=== PATIENT | male | born 1995 | race African-American/Black ===

== ENCOUNTER 2017-02-26 15:15 | Emergency (ER) | payer SELFPAY ==
[2017-02-26 15:31] VITALS: BMI 21.4
--- NOTE | 2017-02-26 15:40 | DR.PSYCH ---
HPI - Time Seen Time seen: 15:35 - PCP Primary Care Physician: MARIA FERNANDA - HPI Comment HPI Comment: PATIENT IS PARIOD. HE DENIES FEVER, DYSURIA OR SOB. - Complaint Chief Complaint Doctors Comments: AUDITORY HALLUCINATIONS AND SOME VISUAL HALLUCINATIONS. CHRONIC BUT MORE FREQUENT NOW. VOICE TRYING TO HURT HIM. HE ALSO WANT TO HURT HIMSELF AND OTHERS. NO PLAIN REVEAL. HE IS A SCHIZOPHENIC PATIENT WITH BIPOLAR DISORDER WHO IS NOT TAKING MEDICATION FOR PAST 6 WEEKS. PATIENT IS ALSO HIV POSITIVE AND HAVE CHRONIC LIVER DISEASE DUE TO HEP C. Chief Complaint:: PT C/O HEARING VOICES "SOMEONE WAS TRYING TO KILL HIM". PT STATES HE HAS HAD THOUGHTS OF WANTING TO KILL HIMSELF AND HURT SOMEONE ELSE. PT STATES DID NOT HAVE A EXACT PLAN, BUT ONLY TO WHAT WAS GOING TO WORK THE [employer]. PT HAS BEEN OFF OF HIS MEDS FOR 1 1/2 MONTHS. PT STATES HE HEARS VOICES ALL THE TIME, BUT THEY ARE GETTING WORSE - Reviewed Nurses Notes Review: Yes - Source History Provided: Patient - Mode of Arrival Mode of Arrival: Ambulatory - Timing Onset of Chief Complaint: 02/22/17 Came on: Gradually - Duration Duration: Constant Duration: Weeks - Context Ideation: Suicidal, Homicidal Plan: None Stressors: Relationships History of: Bipolar, Schizophrenia, Suicidal Attempt (CUT HIS WRIST.) Medication Compliance: No - Quality Quality: None Hallucinations: Visual, Auditory - Severity Severity: Able to care for self - Associated signs and symptoms Intoxification: None <CHARLES HA - Last Filed: 02/26/17 19:49> PMH - PMH Past Medical History: Yes Past Medical History: Anxiety, Depression, Schizophrenia Past Medical History Comment: HIV, BIPOLAR TYPE 2, DELUSIONAL Past Surgical History: No - Family History History of Family Medical Conditions: No - Social History Does patient currently use any type of tobacco product: Yes Have you used tobacco products in the last 12 months: Yes Type of Tobacco Use: Cigarettes Does any household member use tobacco: Yes Alcohol Use: Occasionally Do you use any recreational Drugs:: Yes (COCAINE X2 WEEKS AGO) Lives Where: Homeless - infectious screening In the last 2 months have you had wt loss of >10#?: NO Have you had fever, night sweats or hemotysis?: No Have you traveled outside the country in the last 6 months?: No Isolation: Standard <CHARLES HA - Last Filed: 02/26/17 19:49> ROS - Review of Systems Constitutional: No Symptoms Reported Eyes: No Symptoms Reported ENTM: No Symptoms Reported Respiratoy: No Symptoms Reported Cardiovascular: No Symptoms Reported Gastrointestinal/Abdominal: No Symptoms Reported Genitourinary: No Symptoms Reported Neurological: No Symptoms Reported Musculoskeletal: No Symptoms Reported Integumentary: No Symptoms Reported Hematologic/Lymphatic: Other (HIV POSITIVE. HEP C POSITIVE.) Endocrine: No Symptoms Reported Psychiatric: Hallucinations, Suicidal (THOUGHTS), Other (HOMICIDAL THOUGHTS) All Other Systems: Reviewed and Negative <CHARLES HA Last Filed: 02/26/17 19:49> PE - General Limitations: No Limitations General Appearance: Alert - Head Head Exam: Normal Inspection - Eyes Eye exam: Normal Appearance Pupils: Regular, Round: Bilateral, Reactive: Bilateral Sclera/Conjunctival: Normal Inspection: Bilateral - ENT ENT Exam: Normal Oropharynx, Normal External Ear Exam, Mucous Membranes Moist, TM's Normal Bilaterally - Neck Neck Exam: Normal Inspection, Trachea Midline. negative: Tenderness, Meningismus, Lymphadenopathy - Chest Chest Inspection: Symmetric Chest Wall Rise - Respiratory Respiratory Exam: Normal Lung Sounds Bilat Respiratory Exam: Bilateral Clear to Auscultation - Cardiovascular Cardiovascular Exam: Regular Rate, Normal Rhythm, Normal Heart Sounds - Abdominal Exam Abdominal Exam: Normal Bowel Sounds, Soft. negative: Tenderness - Extremities Extremities Exam: Normal Inspection - Back Back Exam: Normal Inspection - Neurologic Neurological Exam: Alert, Oriented X3 Speech: Fluid Speech Cranial Nerve Exam: EOM Function (II, III, IV, ): Normal, Facial Sensation (V) : Normal, Facial Palsy (VII): Normal, Gag reflex (XI): Normal, Spinal Accessory Function (XI): Normal, Tongue Deviation: Normal Motor Strength - LUE: 5/5 Motor Strength - RUE: 5/5 Motor Strength - LLE: 5/5 Motor Strength - RLE: 5/5 Upper Motor Neuron Exam: Babinski Sign: Normal DTR: achilles tendon (L): 4+, achilles tendon (R): 4+, brachioradialis (L): 4+, brachioradialis (R): 4+, Patellar (L): 4+, patellar (R): 4+ - Psychiatric Psychiatric Exam: Anxious - Skin Skin Exam: Normal Color <CHARLES HA - Last Filed: 02/26/17 19:49> - Vitals Vitals: Temperature 97.8 F Pulse Rate [Left Brachial] 89 Pulse Rate 117 Respiratory Rate 20 Blood Pressure [Left Arm] 112/57 Blood Pressure 116/85 O2 Sat by Pulse Oximetry 100 MDD - Differential Diagnosis Differential diagnosis: Bipolar disorder, Homicidal, Schizophrenia, Substance abuse, Suicidal <CHARLES HA - Last Filed: 02/26/17 19:49> Course - Treatment Treatment: SEE ORDERS. - Consultation Consultation Comments: PATIENT IS MEDICALLY CLEAR. MENTAL HEALTH CONSULT. - Education/Counseling Education/Counseling: Patient, Education Educated On: Treatment, Diagnosis, Needs for Follow Up <CYNTHIA HAAllieYesenia - Last Filed: 02/26/17 19:49> ROR - Labs Reviewed Laboratory Results Reviewed?: Yes Result Diagrams: 02/26/17 15:30 02/26/17 15:30 - EKG Rhythm: NSR (EKG NOTED.) <ISAEL HAIGGYYesenia - Last Filed: 02/26/17 19:49> - Labs Reviewed Result Diagrams: 02/26/17 15:30 02/26/17 15:30 <MOE OLIVO - Last Filed: 02/27/17 01:54> - Labs Reviewed Laboratory: WBC 4.3 X10^3/uL (3.6-10.0) 02/26/17 15:30 RBC 5.36 X10^6/uL (4.7-6.0) 02/26/17 15:30 Hgb 15.9 g/dL (13.5-18.0) 02/26/17 15:30 Hct 45.3 % (42.0-54.0) 02/26/17 15:30 MCV 84.6 fL (80.0-100.0) 02/26/17 15:30 MCH 29.7 pg (27.0-34.0) 02/26/17 15:30 MCHC 35.1 g/dL (33.0-35.0) H 02/26/17 15:30 RDW 13.4 % (11.6-16.5) 02/26/17 15:30 Plt Count 217 X10^3/uL (150.0-450.0) 02/26/17 15:30 MPV 8.7 fL (7.4-11.0) 02/26/17 15:30 Neut % 34.5 % (42.0-75.0) L 02/26/17 15:30 Lymph % 54.0 % (21.0-51.0) H 02/26/17 15:30 Oliver % 8.6 % (0.0-13.0) 02/26/17 15:30 Eos % 1.7 % (0.9-2.9) 02/26/17 15:30 Baso % 1.2 % (0.2-1.0) H 02/26/17 15:30 Neut # 1.5 x10^3/uL (2.2-4.8) L 02/26/17 15:30 Lymph # 2.3 X10^3/uL (1.3-2.9) 02/26/17 15:30 Oliver # 0.4 x10^3/uL (0.3-0.8) 02/26/17 15:30 Eos # 0.1 x10^3/uL (0.0-0.2) 02/26/17 15:30 Baso # 0.0 X10^3/uL (0.0-0.1) 02/26/17 15:30 Absolute Nucleated RBC 0.2 /100WBC 02/26/17 15:30 Sodium 140 mmol/L (136-145) 02/26/17 15:30 Corrected Sodium TNP 02/26/17 15:30 Potassium 4.1 mmol/L (3.5-5.1) 02/26/17 15:30 Chloride 104 mmol/L (98-107) 02/26/17 15:30 Carbon Dioxide 29.4 mmol/L (21-32) 02/26/17 15:30 BUN 19 mg/dL (7-18) H 02/26/17 15:30 Creatinine 1.34 mg/dL (0.70-1.30) H 02/26/17 15:30 Est GFR (MDRD) Af Amer > 60 (>60) 02/26/17 15:30 Est GFR (MDRD) Non-Af > 60 (>60) 02/26/17 15:30 Glucose 78 mg/dL (65-99) 02/26/17 15:30 Calcium 9.5 mg/dL (8.5-10.1) 02/26/17 15:30 Corrected Calcium TNP 02/26/17 15:30 Total Bilirubin 1.30 mg/dL (0.2-1.0) H 02/26/17 15:30 AST 229 Units/L (15-37) H 02/26/17 15:30 ALT 370 Units/L (12-78) H 02/26/17 15:30 Alkaline Phosphatase 88 Units/L (46-116) 02/26/17 15:30 Total Protein 9.1 g/dL (6.4-8.2) H 02/26/17 15:30 Albumin 4.2 g/dL (3.4-5.0) 02/26/17 15:30 Globulin 4.9 g/dL (2.5-4.5) H 02/26/17 15:30 Albumin/Globulin Ratio 0.9 Ratio (1.1-2.1) L 02/26/17 15:30 Specimen Type Clean catch urine 02/26/17 15:51 Urine Color Zaria (YELLOW) 02/26/17 15:51 Urine Appearance Slightly hazy (CLEAR) 02/26/17 15:51 Urine pH 5.0 (5.0 - 8.0) 02/26/17 15:51 Ur Specific [place] 1.025 (1.000-1.030) 02/26/17 15:51 Urine Protein 2+ (NEGATIVE) 02/26/17 15:51 Urine Glucose (UA) Negative (NEGATIVE) 02/26/17 15:51 Urine Ketones 1+ (NEGATIVE) 02/26/17 15:51 Urine Occult Blood Negative (NEGATIVE) 02/26/17 15:51 Urine Nitrite Negative (NEGATIVE) 02/26/17 15:51 Urine Bilirubin 1+ (NEGATIVE) 02/26/17 15:51 Urine Urobilinogen 2+ (NORMAL) 02/26/17 15:51 Ur Leukocyte Esterase 1+ (NEGATIVE) 02/26/17 15:51 Urine RBC None seen /HPF (NEGATIVE) 02/26/17 15:51 Urine WBC 0 - 2 /HPF (NEGATIVE) 02/26/17 15:51 Ur Squamous Epith Cells Rare /HPF (NEGATIVE) 02/26/17 15:51 Amorphous Sediment 1+ /HPF (NEGATIVE) 02/26/17 15:51 Urine Bacteria Negative /HPF (NEGATIVE) 02/26/17 15:51 Ur Culture Indicated? No/not indicated 02/26/17 15:51 Salicylates 5.4 mg/dL (2.8-20) 02/26/17 15:30 Urine Opiates Screen Negative (NEG=<300) 02/26/17 15:51 Urine Methadone Screen Negative (NEG=<300) 02/26/17 15:51 Acetaminophen 0.0 ug/mL (10-30) L 02/26/17 15:30 Ur Barbiturates Screen Negative (NEG=<200) 02/26/17 15:51 Ur Phencyclidine Scrn Negative (NEG=<25) 02/26/17 15:51 Ur Amphetamines Screen Positive (NEG=<1000) 02/26/17 15:51 U Benzodiazepines Scrn Negative (NEG=<200) 02/26/17 15:51 Urine Cocaine Screen Positive (NEG=<300) 02/26/17 15:51 U Marijuana (THC) Screen Negative (NEG=<50) 02/26/17 15:51 Ethyl Alcohol mg/dL < 3 mg/dL (0-19.9) 02/26/17 15:30 <CHARLES HA - Last Filed: 02/26/17 19:49> <MOE OLIVO - Last Filed: 02/27/17 01:54> - Diagnosis Discharge Problem: Psychiatric symptoms, Schizophrenia, Bipolar disease, chronic, Substance abuse , Hallucination, Chronic hepatitis C - Discharge Plan Disposition: 65 XFER TO PSYCH HOSP/UNIT Condition: Stable - Follow ups/Referrals Follow ups/Referrals: NFD,None [Primary Care Provider] - 3 days - Instructions
[2017-02-26 16:09] LABS: BILIRUBIN,URINE 1+ (NEGATIVE); BLOOD/HEMOGLOBIN,URINE NEGATIVE (NEGATIVE); GLUCOSE, URINE NEGATIVE (NEGATIVE); KETONES,URINE 1+ (NEGATIVE); LEUKOCYTE ESTERASE ,URINE 1+ (NEGATIVE); NITRITES,URINE NEGATIVE (NEGATIVE); PROTEIN,URINE 2+ (NEGATIVE); UROBILINOGEN,URINE 2+ (NORMAL)
[2017-02-26 16:09] LABS: BASOPHILS % (AUTO) 1.2 % (0.2-1.0); EOSINOPHILS # (AUTO) 0.1 x10^3/uL (0.0-0.2); EOSINOPHILS % (AUTO) 1.7 % (0.9-2.9); HEMATOCRIT 45.3 % (42.0-54.0); HEMOGLOBIN 15.9 g/dL (13.5-18.0); LYMPHOCYTES # (AUTO) 2.3 X10^3/uL (1.3-2.9); MEAN CORPUSCULAR HEMOGLOBIN 29.7 pg (27.0-34.0); MEAN CORPUSCULAR HGB CONC 35.1 g/dL (33.0-35.0); MEAN CORPUSCULAR VOLUME 84.6 fL (80.0-100.0); MEAN PLATELET VOLUME 8.7 fL (7.4-11.0); MONOCYTES # (AUTO) 0.4 x10^3/uL (0.3-0.8); MONOCYTES % (AUTO) 8.6 % (0.0-13.0); NEUTROPHILS # (AUTO) 1.5 x10^3/uL (2.2-4.8); NEUTROPHILS % (AUTO) 34.5 % (42.0-75.0); PLATELET COUNT 217 X10^3/uL (150.0-450.0); RED BLOOD COUNT 5.36 X10^6/uL (4.7-6.0); RED CELL DISTRIBUTION WIDTH 13.4 % (11.6-16.5); WHITE BLOOD COUNT 4.3 X10^3/uL (3.6-10.0)
[2017-02-26 16:15] LABS: APPEARANCE,URINE SLIGHTLY HAZY (CLEAR); COLOR,URINE AMBER (YELLOW)
[2017-02-26 16:20] LABS: ALANINE AMINOTRANSFERASE 370 Units/L (12-78); ALBUMIN 4.2 g/dL (3.4-5.0); ALKALINE PHOSPHATASE 88 Units/L (46-116); ASPARTATE AMINO TRANSFERASE 229 Units/L (15-37); BLOOD ALCOHOL < 3 mg/dL (0-19.9); BLOOD UREA NITROGEN 19 mg/dL (7-18); CALCIUM 9.5 mg/dL (8.5-10.1); CARBON DIOXIDE 29.4 mmol/L (21-32); CHLORIDE 104 mmol/L (98-107); CREATININE 1.34 mg/dL (0.70-1.30); SALICYLATE 5.4 mg/dL (2.8-20); SODIUM 140 mmol/L (136-145); TOTAL PROTEIN 9.1 g/dL (6.4-8.2); eGFR BLACK RACES > 60 (>60); eGFR NON BLACK RACES > 60 (>60)
[2017-02-26 16:32] LABS: AMORPHOUS SEDIMENT,UR 1+ /HPF (NEGATIVE); BACTERIA,URINE NEGATIVE /HPF (NEGATIVE); RBC,URINE NONE SEEN /HPF (NEGATIVE); SQUAMOUS EPITHELIAL CELL,UR RARE /HPF (NEGATIVE)
[2017-02-27 09:00] VITALS: BP 115/68
== END 2017-02-27 08:59 ==
LOC: ER 15:50
DX: F99 Mental disorder, not otherwise specified (principal); F20.9 Schizophrenia, unspecified; F31.89 Other bipolar disorder; F19.10 Other psychoactive substance abuse, uncomplicated; R44.0 Auditory hallucinations; B18.2 Chronic viral hepatitis C
CPT/HCPCS: 36415; 80053; 80307; 80320; 81001; 85025; 93005; 93010; 99285; G0434; G6038; G6039; G6040